=== PATIENT | male | born 1975 | race Caucasian/White ===

== ENCOUNTER 2025-05-21 18:34 | Emergency (ER) | payer BC, SELFPAY ==
--- OUTSIDE RECORDS SUMMARY | 2024-08-27 03:00 | XMS_ITS ---
Author Organization [facility] [employer] Address [address] [facility] [address] [place] [address] Care Team Providers Care Pleating Machine Operator Name Role Phone Claudia Castro DO Primary Care Provider UnavailConcepción Lewis Unavailable [phone] Emiliano Johansen [phone] REASON FOR VISIT R/S due to illness Social History Sex Assigned At : Social History Observation Description Sex Assigned At Male Encounters Encounter Location Date Provider Diagnosis [facility] [address] [facility] [address] [address] 08/27/2024 Emiliano Johansen Plan Of Treatment No Information Progress Notes * Harrison MCKENZIE SDOB:1974 (50 yo M)Acc No.[id number]:08/27/2024 Patient: Tony blainelaurenhaylee Harrison Carol Provider: Felice Johansen LCPC :1975 A ge:49 Y S ex:Male Date:08/27/2024 Address[facility] [id number] Pcp:Claudia Castro DO Data: * Chief Complaints: * R /S due to illness Billing Information: * Procedure Codes: * Electronic signature of Estela Johansen LCPC on 05/21/2025 at 06:36 PM CUSTODIAL AIDE Sign off status: Pending Signatures: No Ad Hoc Signature Added * Provider: Felice Johansen LCPC Date: 0 08/27/2024 Generated for Aureliano carbajal/Ariela/Ambrose on: 1 07/22/2024 06:36 PM CUSTODIAL AIDE
--- NOTE | ~2025-05-21 | CT_ITS ---
EXAMINATION: CTA chest PE abdomen pel DATE: 05/21/2025 20:56 INDICATION: Chest pain. Epigastric abdominal pain. Elevated lipase. TECHNIQUE: Computed tomography angiography (CTA) of the chest was performed with 100 mL Omnipaque-350 intravenous contrast timed to evaluate the pulmonary arteries. Coronal maximum intensity projection 3D-reconstructions were created by the technologist. Computed tomography (CT) of the abdomen and pelvis was performed with intravenous contrast. Automated exposure control and iterative reconstruction technique were employed. The dose-length product was 765.03 mGy-cm. COMPARISON: Chest x-ray dated 05/21/2025 FINDINGS: CTA chest: No evidence of pulmonary emboli. Thoracic aorta shows no acute findings. No acute or focal pulmonary findings. Hiatus hernia. Below the diaphragm, no focal findings of the liver and spleen. Gallbladder is contracted in size. Pancreas shows no acute findings. No free fluid. No calculi are obstruction of the kidneys. Appendix is normal in size in right paracecal position. No inflammatory changes in the pelvis. Diverticulosis of sigmoid colon. No acute findings of lumbar spine and pelvic bones. IMPRESSION: 1. No evidence of pulmonary emboli. Thoracic aorta shows no acute findings. Hiatus hernia in the lower mediastinum. 2. No acute findings in the CT examination of abdomen and pelvis. No CT evidence of acute pancreatitis. No free fluid or bowel obstruction. Reviewed, dictated and finalized at location T. FIRST ASSIST REGISTERED NURSE IMPRESSION: 1. No evidence of pulmonary emboli. Thoracic aorta shows no acute findings. Hia tus hernia in the lower mediastinum. 2. No acute findings in the CT examination of abdomen and pelvis. No CT evidenc e of acute pancreatitis. No free fluid or bowel obstruction.
--- NOTE | ~2025-05-21 | XR_ITS ---
EXAMINATION: XR chest 2V DATE: 05/21/2025 18:56 INDICATION: Chest pain TECHNIQUE: Frontal and lateral views of the chest were obtained. COMPARISON: None. FINDINGS: Heart size is normal. Lungs are clear of acute processes. Cristina and mediastinum are normal. IMPRESSION: 1. No acute cardiopulmonary findings. Reviewed, dictated and finalized at location T. RESS SPECIALIST
--- NOTE | 2025-05-21 18:35 | ECG_ITS ---
Test Date: 2025-05-21 18:44:15 Measurements Intervals [place] Rate: 96 P: 84 ID: 152 QRS: 68 QRSD: 85 T: 78 QT: 340 QTc: 430 Interpretive Statements SINUS RHYTHM BASELINE ARTIFACT- I, II, III, AVR, AVL, AVF, V1-V6 NORMAL ECG No previous ECG available for comparison Electronically Signed On 05-21-2025 18:51:41 AUTOMOTIVE DIAGNOSTIC TECHNICIAN by Erwin Shoemaker D.O.
--- OUTSIDE RECORDS SUMMARY | 2025-05-21 18:36 | XMS_ITS | Clinical Summary ---
Author Organization [facility] Address [address] [place] [address] Care Team Providers Care Behavioral Interventionist Name Role Phone Suman Godinez MD Unavailable [phone] Claudia Castro DO Primary Care Provider [phone] Allergies No known active allergies Medications atorvastatin (LIPITOR) 20 MG tabletIndicatio ns:Hyperlipidem ia Take 1 tablet (20 mg total) by mouth daily. 90 tablet 4 Active Additional Information Patient not taking.Reported on 06/16/2024 Active Problems Problem Noted Date Diagnosed Date Dyslipidemia 06/16/2024 Addiction, marijuana 06/16/2024 Lightheadedness 11/19/2018 JACOME (dyspnea on exertion) 11/19/2018 Family history of elevated blood lipids 07/24/19 19 Family history of MD (myocardial infarction) Fatigue, unspecified type 07/24/2018 Family history of other cardiovascular diseases 12/17/2013 Overview (07/24/2018): Date Onset: 12/17/2013 Melanocytic nevus of skin 12/17/2013 Overview (07/24/2018): Date Onset: 12/17/2013 Knee pain 11/27/2010 Decreased exercise tolerance Fatigue Resolved Problems Problem Noted Date Diagnosed Date Resolved Date Loose stools 12/17/2013 06/16/2024 Overview (07/24/2018): Date Onset: 12/17/2013 Immunizations Immunization Administration Dates Next Due Influenza (Fluvirin) 03/21/2014 Td, Adsorbed, Preservative F ree, Adult Use, Lf Unspecified 05/12/2016 Tdap (Boostrix) 03/21/2014 Tdap (Generic) 11/04/2009 Family History Medical History Relation Comments Heart Disease Father Late 40's/Early 50's, triple bypass, CAD Coronary artery disease Maternal Grandfather Coronary artery disease Maternal Grandmother Coronary artery disease Paternal Grandfather Coronary artery disease Paternal Grandmother Relation Status Comments Brother Alive Father Alive Maternal Grandfather Maternal Grandmother Mother Alive Paternal Grandfather Paternal Grandmother Social History Tobacco Use Types Packs/Day Years Used Date Smoking Tobacco: Former Cigarettes 0 06/10/1993 - 06/10/2004 Smokeless Tobacco: Former Chew Quit: 06/10/2017 Tobacco Cessation:Counseling Given: No Alcohol Use Standard Drinks/Week Comments Yes 0 (1 standard drink = 0.6 oz pur e alcohol) AUDIT-C Answer Date Recorded Frequency of Alcohol Consumption 2-3 times a wee k 11/19/2018 Average Number of Drinks 1 or 2 019 Frequency of Binge Drinking Less than monthly PHQ-2 Answer Date Recorded Patient Health Questionnaire-2 Score 3 06/16/2024 Sex and Gender Information Value Date Recorded Sex Assigned at Male 07/24/2018 2:30 PM PRODUCTION WELDER Legal Sex Male 11:13 PM CDT Gender Identity Male 07/24/2018 2:30 PM PRODUCTION WELDER Sexual Orientation Not on file 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 Not on file Not on file Last Filed Vital Signs Vital Sign Reading Time Taken Comments Blood Pressure 139/88 06/16/2024 8:03 AM PRODUCTION WELDER Pulse 78 06/16/2024 8:03 AM PRODUCTION WELDER Temperature 37.1 C (98.8 F) 06/16/2024 8:03 AM PRODUCTION WELDER Respiratory Rate 12 06/16/2024 8:03 AM PRODUCTION WELDER Oxygen Saturation 98% 06/16/2024 8:03 AM PRODUCTION WELDER Inhaled Oxygen Concentration - - Weight 88 kg (194 lb) 06/16/2024 8:03 AM PRODUCTION WELDER Height 177.8 cm (5' 10) 06/16/2024 8:03 AM PRODUCTION WELDER Body Mass Index 27.84 06/16/2024 8:03 AM PRODUCTION WELDER Plan of Treatment Health Maintenance Due Date Last Done Comments Colorectal Cancer Screening Colonoscopy (10 Years) 1977 Annual Physical 1980 Hepatitis C 1995 Hepatitis B Vaccines (1 of 3 - 19+ 3-dose series) 1996 COVID-19 Vaccine (2024-2 6 season) 2025 Influenza Adult (#1) 2025 03/21/2014 DTaP, Tdap and Td Vaccines ( 4 - Td or Tdap) 05/12/2026 05/12/2016, 03/21/2014, 11/04/2009 PHQ-2 (Physician [place]) Completed 06/16/2024 Hepatitis A Vaccines Aged Out No long er eligible based on patient's age to complete this topic Meningococcal B Vaccine Aged Out No l onger eligible based on patient's age to complete this topic Meningococcal Vaccine Aged Out No mona barney eligible based on patient's age to complete this topic Pneumococcal Vaccine: Pediatrics (0 to 5 Years) and At-Risk Patients (6 to 49 Years) Aged Out No longer eligible b ased on patient's age to complete this topic RSV Immunizations Under 20 Months Aged Out No longer eligible b ased on patient's age to complete this topic Insurance Care Teams Behavioral Interventionist Relationship Specialty Start Date End Date Claudia Castro DO Three [facility]. [address] [place] [address] PCP - General FAMILY PRACTICE 12/04/18 Suman Godinez MD [facility]. [address] [place] [address] [employer] Ruling Machine Feeder CARDIOVASCULAR DISEASE 11/11/18
--- OUTSIDE RECORDS SUMMARY | 2025-05-21 18:36 | XMS_ITS | Encounter Summary ---
Author Organization [facility] Address [address] [place] [address] Care Team Providers Care Web Merchant Name Role Phone Feli Herman Primary Care Provider [phone] Suman Godinez MD Unavailable [phone] Claudia Castro DO Primary Care Provider [phone] Encounter Details Date Type Department Care Team (Late st Contact Info) Description 11/25/2018 Abstract [facility] at [address] [address] Bhavesh Ceballos MA Social History Tobacco Use Types Packs/Day Years Used Date Smoking Tobacco: Former Cigarettes 0 06/10/1993 - 06/10/2004 Smokeless Tobacco: Former Chew Quit: 06/10/2017 Alcohol Use Standard Drinks/Week Comments Yes 0 (1 standard drink = 0.6 oz pur e alcohol) AUDIT-C Answer Date Recorded Frequency of Alcohol Consumption 2-3 times a wee k 11/19/2018 Average Number of Drinks 1 or 2 019 Frequency of Binge Drinking Less than monthly Sex and Gender Information Value Date Recorded Sex Assigned at Male 07/24/2018 2:30 PM INVESTMENTS MANAGER Legal Sex Male 11:13 PM CDT Gender Identity Male 07/24/2018 2:30 PM INVESTMENTS MANAGER Sexual Orientation Not on file 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 Not on file Not on file documented as of this encounter Plan of Treatment Not on file documented as of this encounter Procedures Procedure Name Priority Date/Time Associated Diagnosis Comments HEMOGLOBIN GLYCOSYLATED A1C Routine 08/23/2018 CBC (OUTSIDE LAB) Routine 08/22/2018 COMPREHENSIVE METABOLIC PANEL Routine 08/22/2018 LIPID PANEL Routine 08/22/2018 THYROID STIM HORMONE TSH Routine 08/22/2018 documented in this encounter Results * HEMOGLOBIN, GLYCOSYLATED (08/23/2018) HGB A1C 4.9 08/23/2018 [facility] Final Result * LIPID PANEL (08/22/2018) CHOLESTEROL 217 HDL 42 TRIGLYCERIDES 75 LDL (CALCULATED) 160 08/22/2018 us [facility] Final Result * THYROID STIM HORMONE, TSH (08/22/2018) TSH 1.107 08/22/2018 us [facility] Final Result * COMPREHENSIVE METABOLIC PANEL (08/22/2018) SODIUM S/P/B 138 POTASSIUM S/P/B 4.1 CO2 26 CHLORIDE S/P/B 102 GLUCOSE 89 mg/dL CALCIUM S/P/B 9.1 BUN 21 CREATININE S/P/B 1.0 0.7 - 1.3 ALKALINE PHOSPHATASE S/P/B 64 ALT 36 AST 22 BILIRUBIN TOTAL S/P/B 2.5 ALBUMIN S/P/B 4.6 3.5 - 5.0 TOTAL PROTEIN S/P/B 8.0 08/22/2018 [facility] Final Result * CBC (OUTSIDE LAB) (08/22/2018) WBC 4.9 HGB 16.6 HCT 48.2 PLT 281 08/22/2018 us Doc [facility] Abstract LAB-OUTSIDE/ABSTRACTED Final Result documented in this encounter Visit Diagnoses Not on filedocumented in this encounter Care Teams Web Merchant Relationship Specialty Start Date End Date Feli Herman FNP PCP - General Nurse Practitioner Family 07/21/18 12/03/18 Claud[facility] [address] [facility], [place] [id number] PCP - General FAMILY PRACTICE 12/04/18 S[facility] [address] [place] [address] Daysi Oven Baker CARDIOVASCULAR DISEASE 11/11/18 documented as of this encounter
[2025-05-21 18:50] VITALS: BP 141/96; PULSE 92; RESP 20; O2SAT 95
[2025-05-21 18:55] LABS: Hematocrit 47.0 % (42.0-52.0); Hemoglobin 17.3 g/dL (14.0-18.0); Immature Granulocyte Percent A 0.1 % (0-0.5); Lymphocytes Absolute Auto 2.52 K/mm3 (0.9-3.2); Mean Corpuscular HGB Conc 36.8 g/dl (32-36); Mean Corpuscular Hemoglobin 32.6 pg (26-34); Mean Corpuscular Volume 88.7 fl (80-100); Nucleated Red Blood Cells Absolute Auto 0.000 K/mm3 (0.0-0.012); Nucleated Red Blood Cells Perc 0.0 % (0.0-0.2); Platelet Count Result 277 k/mm3 (150-375); Red Blood Count 5.30 M/mm3 (4.6-6.20); White Blood Count 6.8 K/mm3 (4.5-10.0)
[2025-05-21 19:06] LABS: INR 1.1; Prothrombin Time 14.2 Seconds (11.1-14.7)
[2025-05-21 19:07] LABS: Partial Thromboplastin Time 29.7 Seconds (22.3-36.8)
[2025-05-21 19:15] LABS: Alanine Aminotransferase 27 U/L (6-50); Albumin Level 4.9 g/dL (3.5-5.1); Alkaline Phosphatase 66 U/L (38-126); Anion Gap 7 mmol/L (4-12); Aspartate Amino Transferase 33 U/L (17-59); Bilirubin,Total 1.8 mg/dL (0.2-1.3); Blood Urea Nitrogen 17 mg/dL (9-20); Calcium 9.2 mg/dL (8.4-10.2); Carbon Dioxide 25 mmol/L (22-30); Chloride 105 mmol/L (98-107); Estimated Glomerular Filt Rate > 60; Glucose 90 mg/dL (65-110); Lipase 324 U/L (23-300); Potassium 3.7 mmol/L (3.4-5.0); Sodium 137 mmol/L (137-145); Total Protein 8.3 g/dL (6.3-8.2)
[2025-05-21 19:28] LABS: Troponin I 0.023 ng/mL (0.000-0.034)
[2025-05-21 19:49] VITALS: BP 135/90; PULSE 71; RESP 20; TEMP 36.6; O2SAT 97
--- NOTE | 2025-05-21 20:07 | ED_ITS ---
HPI - General Adult General Chief complaint: Chest Pain Stated complaint: CP, sob Time Seen by Provider: 05/21/25 19:46 History of Present Illness HPI narrative: Patient 50-year-old gentleman presents emergency department with chief complaint of chest discomfort. Patient reports that he started having pain yesterday reports was intermittent reports that he has a fullness feeling in his chest and reports that today the pain became constant patient reports he has a significant family history for cardiac disease and reports that he talked to his father who is a physician they recommended to come to the emergency department. Related Data Allergies Allergy/AdvReac Type Severity Reaction Status Date / Time No Known Allergies Allergy Unverified 06/22/13 15:15 Review of Systems 2 Review of Systems: A 10 system review of systems was completed on the patient and is negative except for what is stated in the HPI. Nursing and ancillary documentation was reviewed. Exam 2 Narrative: GENERAL: Well-appearing, well-nourished, and in no acute distress. HEAD: Normocephalic, atraumatic. EYES: PERRLA and EOMI. ENT: Nares clear, no rhinorrhea or epistaxis. Mucous membranes moist. NECK: Supple. CHEST: Clear to auscultation. No respiratory distress. HEART: Regular rate and rhythm. No murmur heard. Normal peripheral pulses. ABDOMEN: Soft, nontender, nondistended, normal active bowel sounds. EXTREMITIES: Normal range of motion. No edema. SKIN: Warm, dry, no rash. NEURO: No focal deficits. Alert and oriented x3. PSYCH: Normal mood and affect. Course Vital Signs Vital signs: Vital Signs Pulse Rate 92 05/21/25 18:50 Respiratory Rate 20 05/21/25 18:50 Blood Pressure 141/96 H 05/21/25 18:50 Pulse Oximetry 95 05/21/25 18:50 Oxygen Delivery Room Air 05/21/25 18:50 Temperature 36.6 C 05/21/25 19:49 Pulse Rate 71 05/21/25 19:49 Respiratory Rate 20 05/21/25 19:49 Blood Pressure 135/90 05/21/25 19:49 Pulse Oximetry 97 05/21/25 19:49 Oxygen Delivery Room Air 05/21/25 18:50 MDM Differential Diagnosis Differential Diagnosis: ACS, angina, unstable angina, pulmonary embolism, pancreatitis, gastritis, EKG showed no acute ischemic changes Lipase was 324 bilirubin was 1.8 and troponin was 0.023 repeat troponin was less than 0.012 this CTA chest and abdomen pelvis showed no acute abnormalities Patient is feeling much better will be discharged home with follow-up with primary care Lab Data MDM Lab Attestation statement: I personally reviewed the patient's lab results. 05/21/25 18:49 05/21/25 18:49 Labs: Lab Results 05/21/25 05/21/25 Range/Units 18:49 21:18 WBC 6.8 (4.5-10.0) K/mm3 RBC 5.30 (4.6-6.20) M/mm3 Hgb 17.3 (14.0-18.0) g/dL Hct 47.0 (42.0-52.0) % MCV 88.7 (80-100) fl MCH 32.6 (26-34) pg MCHC 36.8 H (32-36) g/dl RDW 12.1 (11.5-14.5) % Plt Count 277 (150-375) k/mm3 MPV 9.2 (7.4-10.4) fl Immature Gran % (Auto) 0.1 (0-0.5) % Neut % (Auto) 50.2 (45.5-73.1) % Lymph % (Auto) 37.3 (18.3-44.2) % Fisher % (Auto) 7.0 (2.6-8.5) % Eos % (Auto) 4.4 (0-4.4) % Baso % (Auto) 1.0 (0.2-1.2) % Lymph # (Auto) 2.52 (0.9-3.2) K/mm3 Fisher # (Auto) 0.5 (0.1-0.6) K/mm3 Eos # (Auto) 0.3 (0-0.3) K/mm3 Baso # (Auto) 0.1 (0.0-0.1) K/mm3 Abs Immat Gran (auto) 0.01 (0.00-0.031) K/mm3 Absolute Neuts (auto) 3.4 (1.3-6.7) K/mm3 Absolute Nucleated RBC 0.000 (0.0-0.012) K/mm3 Nucleated RBC % 0.0 (0.0-0.2) % PT 14.2 (11.1-14.7) Seconds INR 1.1 APTT 29.7 (22.3-36.8) Seconds Sodium 137 (137-145) mmol/L Potassium 3.7 (3.4-5.0) mmol/L Chloride 105 (98-107) mmol/L Carbon Dioxide 25 (22-30) mmol/L Anion Gap 7 (4-12) mmol/L BUN 17 (9-20) mg/dL Creatinine 0.88 (0.7-1.3) mg/dL Estim Creat Clear Calc Not Reportable Estimated GFR > 60 (59 - ) Glucose 90 (65-110) mg/dL Calcium 9.2 (8.4-10.2) mg/dL Total Bilirubin 1.8 H (0.2-1.3) mg/dL AST 33 (17-59) U/L ALT 27 (6-50) U/L Alkaline Phosphatase 66 (38-126) U/L Troponin I 0.023 < 0.012 D (0.000-0.034) ng/mL Total Protein 8.3 H (6.3-8.2) g/dL Albumin 4.9 (3.5-5.1) g/dL Lipase 324 H (23-300) U/L Imaging Data Radiologist's impression: ITS Impressions Chest X-Ray 05/21/25 18:59 IMPRESSION: 1. No acute cardiopulmonary findings. Chest/Abdomen/Pelvis CTA 05/21/25 21:05 IMPRESSION: 1. No evidence of pulmonary emboli. Thoracic aorta shows no acute findings. Hiatus hernia in the lower mediastinum. 2. No acute findings in the CT examination of abdomen and pelvis. No CT evidence of acute pancreatitis. No free fluid or bowel obstruction. Discharge Plan Discharge Clinical Impression: Atypical chest pain Patient Disposition: Home Condition: Stable Instructions: Antibiotic Form, Chest Pain (ED) Patient Language: Turkish Follow-up/Referrals: Matthew,Claudia Durham DO [Primary Care Provider, Unknown] Je Joseph MD [Physician, Family Practice] Time of Disposition: 22:05 Quality HEART score for chest pain patients History: slightly suspicious ECG: normal Age: > 45 and < 65 years Risk factors: 1 or 2 risk factors Troponin: < or = to 1x normal limit Heart score: 2
[2025-05-21] MEDS: ASPIRIN 81 MG CHEWABLE TABLET 324 MG PO (20:15)
--- NOTE | 2025-05-21 21:13 | ECG_ITS ---
Test Date: 2025-05-21 21:19:44 Measurements Intervals [place] Rate: 63 P: 73 ME: 165 QRS: 58 QRSD: 88 T: 64 QT: 390 QTc: 402 Interpretive Statements SINUS RHYTHM BASELINE ARTIFACT- I, II, III, AVR, AVL, AVF, V1-V6 NORMAL ECG Compared to ECG 05/21/2025 18:44:15 No significant changes Electronically Signed On 05-22-2025 08:07:37 GATE CLERK by Erwin Shoemaker D.O.
[2025-05-21 21:50] LABS: Troponin I < 0.012 ng/mL (0.000-0.034)
[2025-05-21 22:17] VITALS: BP 122/82; PULSE 69; RESP 20; O2SAT 98
== END 2025-05-21 22:19 | disposition home or self-care (01) ==
PROVIDERS: Emergency Provider Emergency Medicine; PCP Family Medicine Sports Medicine
DX: R07.89 Other chest pain (principal)
CPT/HCPCS: 36415; 71046; 71275; 74177; 80053; 83690; 84484; 85025; 85610; 85730; 93005; 99284; A9270; Q9967